=== PATIENT | female | born 2005 ===

== ENCOUNTER 2025-02-16 14:10 | Emergency (ER) | payer OTHER, SELFPAY ==
--- NOTE | ~2025-02-16 | XR_ITS ---
CLINICAL HISTORY: fall midline lumbar pain 3 views lumbar spine Comparison: None Findings: No fractures Normal vertebral body alignment No significant arthritic change Sacroiliac joints unremarkable Impression: Normal lumbar spine. No acute skeletal abnormality. This document has been electronically signed by: Hunter Hallman MD on 02/16/2025 16:23:27
--- NOTE | ~2025-02-16 | XR_ITS ---
CLINICAL HISTORY: pain, injury 3 views left ankle Comparison: None Findings: No fractures or dislocations. No joint effusion. No significant arthritic change. No radiopaque foreign body. Impression: Normal left ankle. No acute skeletal trauma. This document has been electronically signed by: Hunter Hallman MD on 02/16/2025 15:17:00
--- NOTE | ~2025-02-16 | CT_ITS ---
CLINICAL HISTORY: fall down 6+stairs posterior head strike CT Head Without Contrast: Comparison: None Findings: Cortical sulci are symmetric Basal ganglia are unremarkable No shift in midline structures No intraparenchymal bleeding or abnormal extra axial blood fluid collections Normal pituitary size There is fluid soft tissue density filling right maxillary, anterior right ethmoids and right frontal sinus Unremarkable orbital structures No depressed fractures. The mastoid air cells and middle ear cavities are clear without signs of basilar fracture. Impression: Unremarkable CT of the head, no signs of acute trauma This document has been electronically signed by: Hunter Hallman MD on 02/16/2025 16:50:10
--- NOTE | ~2025-02-16 | CT_ITS ---
CLINICAL HISTORY: fall head strike midline c spine pain CT cervical spine without contrast Comparison: None Findings: Normal limited view of the intracranial contents. Soft tissues of the neck are normal. Lung apices are clear. Normal vertebral body alignment. No fractures or dislocations. No significant degenerative change. Impression: Unremarkable cervical spine, no signs of acute trauma. This document has been electronically signed by: Hunter Hallman MD on 02/16/2025 16:56:18
[2025-02-16 14:13] VITALS: BP 135/58; PULSE 77; RESP 16; TEMP 36.3; O2SAT 100; BMI 26.6
--- NOTE | 2025-02-16 14:17 | ED_ITS ---
HPI - General Adult General Chief complaint: Fall Stated complaint: fall down stairs, back/ankle pain Time Seen by Provider: 02/16/25 15:12 Source: patient and family (mom) Mode of arrival: ambulatory Limitations: no limitations History of Present Illness ED Provider: MELIA JOHNSON PA-C HPI narrative: 20-year-old female with no significant past medical history presents to the ED today with her mother for evaluation following a mechanical fall occurring around 1300 today. She reports slipping on a dog toy while descending the stairs in her home causing her to fall backward and slide down 6 stairs. Reports posterior head strike on the edge of the stairs. No loss of consciousness. Not on anticoagulation. Reports headache, midline neck pain, midline low back pain and left ankle pain. Reports trialing Tylenol without much relief. Denies dizziness, vision changes, numbness/tingling/weakness of the lower extremities, saddle anesthesia, bowel or bladder incontinence or retention, chest pain, shortness of breath. Related Data Previous Rx's ?Medication ?Instructions ?Recorded cyclobenzaprine 5 mg tablet 5 mg PO Q8H PRN muscle pain #7 tabs 02/16/25 lidocaine 5 % topical patch 1 patch topical DAILY #15 ea 02/16/25 (Lidoderm) Allergies Allergy/AdvReac Type Severity Reaction Status Date / Time Penicillins Allergy Hives Verified 02/16/25 14:15 Review of Systems Review of Systems: Constitutional: No fever, chills, fatigue, night sweats, weight changes ENT/Mouth: No ear pain, hearing loss, nasal congestion, sinus pain, rhinorrhea, sore throat Eyes: No eye pain, swelling, redness, vision changes, discharge Cardio: No chest pain, palpitations, VELA, orthopnea, peripheral edema Pulm: No SOB, cough, sputum, wheezing, dyspnea, hemoptysis GI: No nausea, vomiting, hematemesis, abdominal pain, diarrhea, constipation, hematochezia, melena : No irregular bleeding, dysuria, frequency, urgency, hesitancy, hematuria, flank pain, urinary flow changes, urinary incontinence or retention MSK: No joint pain, myalgias, +L ankle pain, +neck pain, +back pain Skin: No lesions, rashes Neuro: No weakness, numbness, paresthesias, LOC, dizziness, +headache Psych: No anxiety/panic, depression, SI/HI, AH/VH All other systems reviewed and are negative. [facility] Past Medical History Attestation statement: The following information was validated with the patient. Source: old records reviewed and nursing notes reviewed Social History Social History Advance Directives: No Advance Directives Information Provided: No Do you have a plan to hurt others: No Plan Physical Exam ED Vital Signs: Vital Signs - 24 hr 02/16/25 14:13 02/16/25 16:08 02/16/25 17:24 Temperature 97.4 F 98.1 F 98.1 F Pulse Rate 77 74 74 Respiratory Rate 16 16 16 Blood Pressure 135/58 L 102/59 L 102/59 L Pulse Oximetry 100 97 97 Oxygen Delivery Method Room Air Room Air Room Air BMI result Body Mass Index 26.6 vital signs stable General: Well appearing, in no acute distress. Skin: Warm, dry, intact. No rashes or lesions. Head: Normocephalic, atraumatic. No palpable skull fracture or hematoma. No love sign, no raccoon eyes. EENT: Hearing is intact b/l. Conjunctiva clear. Sclera is anicteric. PERRLA. EOM intact. Moist mucous membranes.? Neck: +midline cervical spinous tenderness without step-off deformity. placed in cervical collar. Cardiac: Chest wall symmetric. RRR Lungs: Normal respiratory effort without accessory muscle use. CTA bilaterally Abdomen: Soft, non-tender, non-distended. No rebound tenderness or guarding. Positive BS x4. Back: +midline lumbar spinous tenderness without step-off deformity Ext: +minimal swelling noted to L ankle. no overlying ecchymosis or abrasions. diffusely ttp, no palpable crepitus or fluctuance. 2+ dp pulse. Neuro: AOx3. Normal speech. NIH 0. Strength 5/5 intact throughout. No saddle anesthesia. Sensation intact to light touch. NV intact distally. Ambulating with steady gait. Psych: Appropriate mood and affect. Responds appropriately to questions. Course Course Course Narrative: RME performed by Lupis Foster PA-C. Patient is a 20 year old assigned female at presenting to the emergency department with left ankle pain, low back pain, and a headache after falling down 6 stairs. Detailed physical exam and review of systems are deferred to the welcome desk agent. Imaging ordered. Patient placed back in the waiting room pending room availability and results. Reevaluation(s) Reevaluation #1: 1634 -- xr left ankle and xr lumbar spine unremarkable. ct head/c spine pending. > toradol + lido patch ordered for pain control. 1715 -- xr lumbar spine without fracture. ct head/ c spine without acute abnormalities. > c collar removed. discussed all work up results with patient and mother. advised tylenol/ motrin at home for pain/ discomfort. flexeril/ lido patches sent. alejandro wrap applied to L ankle for compression. no concern for ligament/ tendon injury. Medications Administered Discontinued Medications Generic Name Dose Route Start Last Admin Trade Name Freq PRN Reason Stop Dose Admin Ketorolac Tromethamine 30 mg 02/16/25 15:32 02/16/25 15:40 Ketorolac Tromethamine 30 Mg/Ml Vial IM 02/16/25 15:33 30 mg ONCE ONE Administration Lidocaine 1 patch 02/16/25 15:32 02/16/25 15:40 Lidocaine 4 % Patch Adh..Patch TRANSDERMA 02/16/25 15:33 1 patch ONCE ONE Administration Protocol Medical Decision Making Medical Decision Making [facility] Narrative: 20-year-old female with no significant past medical history presents to the ED t [place] with her mother for evaluation following a mechanical fall occurring around 1300 today. Differential diagnosis includes cervical sprain/strain, cervical contusion, cervical fracture/subluxation. Concern for ankle contusion, sprain/strain, fracture, dislocation. Concern for lumbar fracture, contusion, arthritis, sciatica, muscle spasm, MSk sprain/strain. headache v migraine, concussion, ICH, CVA. XRs of left ankle obtained from triage. Given midline lumbar tenderness, xr lumbar spine added. Given midline c spine tenderness w/ fall down 6 stairs, I have placed patient in cervical collar. CT head/ c spine ordere to r/p fracture, bleed. Toradol and lido patch ordered for pain control. Differential Diagnosis Differential Diagnoses: The differential diagnosis associated with the presentation includes as above. Admission/Observation not indicated. Lab Data [facility] Lab Attestation statement: I reviewed the patient's lab results. as above. Labs: Lab Results 02/16/25 Range/Units 16:17 Beta HCG, Quant < 2 mIU/mL Independent Interpretation I performed an independent interpretation of an: Plain X-Ray and CT Scan Interpretation: CT head/brain without bleed or skull fracture CT cervical spine without fracture xr lumbar spine without fracture xr left ankle without fracture Radiology Impression Discussion of test interpretation with radiology: I have reviewed the radiologist's reading. Radiologist Impression: Date of Service: 02/16/25 Procedure(s): XR ankle LT min 3V Accession Number(s): [id number] cc: Lupis Foster; Physician,Unknown ~ CLINICAL HISTORY: pain, injury 3 views left ankle Comparison: None Findings: No fractures or dislocations. No joint effusion. No significant arthritic change. No radiopaque foreign body. Impression: Normal left ankle. No acute skeletal trauma. This document has been electronically signed by: Hunter Hallman MD on 02/16/2025 15:17:00 Procedure(s): XR lumbar spine 2-3V Accession Number(s): [id number] cc: Physician,Unknown ; Melia Johnson~ CLINICAL HISTORY: fall midline lumbar pain 3 views lumbar spine Comparison: None Findings: No fractures Normal vertebral body alignment No significant arthritic change Sacroiliac joints unremarkable Impression: Normal lumbar spine. No acute skeletal abnormality. This document has been electronically signed by: Hunter Hallman MD on 02/16/2025 16:23:27 Date of Service: 02/16/25 Procedure(s): CT cervical spine wo IV con Accession Number(s): [id number] cc: Physician,Unknown ; Melia Johnson~ Report Number: [id number]: Total DLP = 0.00 mGy-cm CLINICAL HISTORY: fall head strike midline c spine pain CT cervical spine without contrast Comparison: None Findings: Normal limited view of the intracranial contents. Soft tissues of the neck are normal. Lung apices are clear. Normal vertebral body alignment. No fractures or dislocations. No significant degenerative change. Impression: Unremarkable cervical spine, no signs of acute trauma. This document has been electronically signed by: Hunter Hallman MD on 02/16/2025 16:56:18 Date of Service: 02/16/25 Procedure(s): CT head/brain wo IV con Accession Number(s): [id number] cc: Physician,Unknown ; Melia Johnson~ Report Number: [id number]: Total DLP = 1038.00 mGy-cm CLINICAL HISTORY: fall down 6+stairs posterior head strike CT Head Without Contrast: Comparison: None Findings: Cortical sulci are symmetric Basal ganglia are unremarkable No shift in midline structures No intraparenchymal bleeding or abnormal extra axial blood fluid collections Normal pituitary size There is fluid soft tissue density filling right maxillary, anterior right ethmoids and right frontal sinus Unremarkable orbital structures No depressed fractures. The mastoid air cells and middle ear cavities are clear without signs of basilar fracture. Impression: Unremarkable CT of the head, no signs of acute trauma This document has been electronically signed by: Hunter Hallman MD on 02/16/2025 16:50:10 Date of Service: 02/16/25 Procedure(s): XR lumbar spine 2-3V Accession Number(s): [id number] cc: Physician,Unknown ; Melia Johnson~ CLINICAL HISTORY: fall midline lumbar pain 3 views lumbar spine Comparison: None Findings: No fractures Normal vertebral body alignment No significant arthritic change Sacroiliac joints unremarkable Impression: Normal lumbar spine. No acute skeletal abnormality. This document has been electronically signed by: Hunter Hallman MD on 02/16/2025 16:23:27 Independent Historian Clinical information obtained from an independent historian. History obtained from or confirmed by: Parent (mom) Prescription Management I considered prescription management with: Pain Medication Social Determinants Patient?s care significantly limited by Social Determinants of Health including: Other Social Determinant of Health Critical Care Time Critical Care Time Critical Care Time: No Discharge Plan Discharge Clinical Impression: Fall Patient Disposition: Home, Self-Care Instructions: Fall Prevention (ED) Additional Instructions: You were evaluated in the ED today after a fall. The x-rays of your left ankle and lower back are normal. The CT scan of your head and neck are normal. I recommend you take 600mg ibuprofen every 6 hours or Tylenol 650mg every 6 hours as needed for pain. If needed, you can alternate these medications so that you take one medication every 3 hours. For example, at noon take ibuprofen, then at 3pm take Tylenol, then at 6pm take ibuprofen. Flexeril is a muscle relaxer. Take this at night as it makes you drowsy. Do not drive, drink alcohol, or operate machinery while taking it. Lidoderm patches are numbing patches. Apply to painful areas. Follow up with your PCP. Return with new or worsening symptoms. In the case of an emergency call 911. Prescriptions: New cyclobenzaprine 5 mg tablet 5 mg PO Q8H PRN (Reason: muscle pain) Qty: 7 0RF lidocaine [Lidoderm] 5 % adhesive patch,medicated 1 patch topical DAILY Qty: 15 0RF Rx Instructions: leave on most painful area for up to 12 hrs Referrals: Physician,Unknown J [Primary Care Provider] - Stand Alone Forms: Work/School Release Interventions: ED Discharge Assessment Last Done: 02/16/25 17:24 Discharge Date/Time: 02/16/25 17:25 Print Language: Lao
[2025-02-16] MEDS: Lidocaine 4 % Patch ADH..PATCH 1 PATCH TRANSDERMA (15:40)
[2025-02-16] MEDS: Ketorolac Tromethamine 30 MG/ML VIAL IM (15:40)
[2025-02-16 16:08] VITALS: BP 102/59; PULSE 74; RESP 16; TEMP 36.7; O2SAT 97
--- NOTE | 2025-02-16 16:20 | MHC.EDTECH ---
This pct just assumed care of Patient ,vitals taken ,blood drawn and sent to lab ,vitals taken ,Pt mom at bedside ,call shaw within Pt reach .
[2025-02-16 16:45] LABS: HCG Quantitative < 2 mIU/mL
[2025-02-16 17:24] VITALS: BP 102/59; PULSE 74; RESP 16; TEMP 36.7; O2SAT 97
== END 2025-02-16 17:25 | disposition home or self-care (01) ==
PROVIDERS: Physician Assistant Medical; Emergency Provider Emergency Medicine
DX: R51.9 Headache, unspecified (principal); M54.50 Low back pain, unspecified; M25.572 Pain in left ankle and joints of left foot; T14.90XA Injury, unspecified, initial encounter; W10.9XXA Fall (on) (from) unspecified stairs and steps, initial encounter; Y93.9 Activity, unspecified; Y92.9 Unspecified place or not applicable; Y99.9 Unspecified external cause status
CPT/HCPCS: 36415; 70450; 72100; 72125; 73610; 84702; 96372; 99283; 99284; J1885

== ENCOUNTER → 2025-02-16 14:18 | Outpatient (BNV) | payer OTHER, SELFPAY | PROVIDERS: Emergency Provider Emergency Medicine; Visit Provider Radiology Diagnostic Radiology | DX: M54.6 Pain in thoracic spine (principal); G44.319 Acute post-traumatic headache, not intractable; M54.50 Low back pain, unspecified; M25.572 Pain in left ankle and joints of left foot | CPT/HCPCS: 70450; 72100; 72125; 73610 ==